=== PATIENT | female | born 1970 | race Caucasian/White ===

== ENCOUNTER 2024-05-06 05:40 | Observation (INO) ==
--- NOTE | 2024-04-13 10:06 | PAT Medication Instructions ---
Medication Instructions Date of Service April 13, 2024 Home Medications cholecalciferol (vitamin D3) 125 mcg (5,000 unit) tablet (Vitamin D3) 125 mcg PO QAM diltiazem HCl 90 mg tablet 90 mg PO QAM estradiol 0.01% (0.1 mg/gram) vaginal cream 1 appful vaginal DAILY fentanyl 12 mcg/hr transdermal patch 1 patch transdermal Q72H furosemide 20 mg tablet 20 mg PO DAILY PRN Edema hydrocortisone 10 mg tablet 10 mg PO BID levothyroxine 100 mcg tablet 100 mcg PO QAM nitrofurantoin 100 mg capsule 100 mg PO QPM oxycodone-acetaminophen 5 mg-325 mg tablet 1 tab PO TID PRN Pain pantoprazole 20 mg tablet,delayed release 20 mg PO DAILY potassium chloride 20 mEq tablet,extended release 20 meq PO DAILY PRN Edema prasterone (dhea) 25 mg tablet (DHEA) 25 mg PO QAM pregabalin 100 mg capsule (Lyrica) 100 mg PO TID propranolol 10 mg tablet 10 mg PO TID vitamin B12 500 mcg-folic acid 400 mcg tablet 1 tab PO QAM Continue as directed fentanyl 12 mcg/hr transdermal patch 1 patch transdermal Q72H (Avoid placement near surgery site prior to surgery) STOP taking 2 weeks before surgery (or as soon as possible if surgery is within 2 weeks) prasterone (dhea) 25 mg tablet (DHEA) 25 mg PO QAM STOP taking 24 hours before surgery estradiol 0.01% (0.1 mg/gram) vaginal cream 1 appful vaginal DAILY DO NOT take the morning of surgery cholecalciferol (vitamin D3) 125 mcg (5,000 unit) tablet (Vitamin D3) 125 mcg PO QAM furosemide 20 mg tablet 20 mg PO DAILY PRN Edema potassium chloride 20 mEq tablet,extended release 20 meq PO DAILY PRN Edema vitamin B12 500 mcg-folic acid 400 mcg tablet 1 tab PO QAM Take morning of surgery With a small sip of water, OTHERWISE NOTHING TO EAT OR DRINK AFTER MIDNIGHT: diltiazem HCl 90 mg tablet 90 mg PO QAM hydrocortisone 10 mg tablet 10 mg PO BID levothyroxine 100 mcg tablet 100 mcg PO QAM oxycodone-acetaminophen 5 mg-325 mg tablet 1 tab PO TID PRN Pain (if needed) pantoprazole 20 mg tablet,delayed release 20 mg PO DAILY pregabalin 100 mg capsule (Lyrica) 100 mg PO TID propranolol 10 mg tablet 10 mg PO TID Take evening before surgery furosemide 20 mg tablet 20 mg PO DAILY PRN Edema (if needed) hydrocortisone 10 mg tablet 10 mg PO BID nitrofurantoin 100 mg capsule 100 mg PO QPM oxycodone-acetaminophen 5 mg-325 mg tablet 1 tab PO TID PRN Pain (if needed) potassium chloride 20 mEq tablet,extended release 20 meq PO DAILY PRN Edema (if needed) pregabalin 100 mg capsule (Lyrica) 100 mg PO TID propranolol 10 mg tablet 10 mg PO TID Other Notes If you have any questions please call us at [phone] or [phone] or [phone] or [phone]
--- NOTE | 2024-04-21 11:25 | Anesthesiology Consultation ---
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 Will leave to surgeon's discretion if preop Covid testing needed Teaching & Discussion Pre-Anesthesia Teaching/Discussion Notes: Instructed NPO after midnight before surgery,except medications with 15 cc of water. Medication instructions provided according to the PAT guidelines. History Surgery Operation Date: 05/06/24 07:45 Proposed Procedures p C5-C6 Anterior Discectomy and Fusion, Spinal Cord Monitoring - Cali Blackburn, Height/Weight Height: 5 ft 3 in Weight: 71.7 kg Allergies Allergy/AdvReac Type Severity Reaction Status Date / Time adhesive tape Allergy Intermediate Blisters Verified 04/13/24 08:00 Medications Home Medications Medication Instructions Recorded Confirmed Last Taken cholecalciferol (vitamin D3) 125 125 mcg PO QAM 04/13/24 04/13/24 Unknown mcg (5,000 unit) tablet (Vitamin D3) diltiazem HCl 90 mg tablet 90 mg PO QAM 04/13/24 04/13/24 Unknown estradiol 0.01% (0.1 mg/gram) 1 appful vaginal DAILY 04/13/24 04/13/24 Unknown vaginal cream fentanyl 12 mcg/hr transdermal 1 patch transdermal Q72H 04/13/24 04/13/24 Unknown patch furosemide 20 mg tablet 20 mg PO DAILY PRN Edema 04/13/24 04/13/24 Unknown hydrocortisone 10 mg tablet 10 mg PO BID 04/13/24 04/13/24 Unknown levothyroxine 100 mcg tablet 100 mcg PO QAM 04/13/24 04/13/24 Unknown nitrofurantoin 100 mg capsule 100 mg PO QPM 04/13/24 04/13/24 Unknown oxycodone-acetaminophen 5 mg-325 1 tab PO TID PRN Pain 04/13/24 04/13/24 Unknown mg tablet pantoprazole 20 mg tablet,delayed 20 mg PO DAILY 04/13/24 04/13/24 Unknown release potassium chloride 20 mEq 20 meq PO DAILY PRN Edema 04/13/24 04/13/24 Unknown tablet,extended release prasterone (dhea) 25 mg tablet 25 mg PO QAM 04/13/24 04/13/24 Unknown (DHEA) pregabalin 100 mg capsule (Lyrica) 100 mg PO TID 04/13/24 04/13/24 Unknown propranolol 10 mg tablet 10 mg PO TID 04/13/24 04/13/24 Unknown vitamin B12 500 mcg-folic acid 400 1 tab PO QAM 04/13/24 04/13/24 Unknown mcg tablet Past Medical History Medical History (Updated 04/22/24 @ 08:59 by Yamini Florez PA-C) Achalasia and nutcracker esophagus Gets EGD dilation and botox injection q 3-4 months (just had EGD dilation with Botox injection 04/20/24- symptoms controlled currently) 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" - Usually given stress dose IV - Follows with [facility] Endocrinology - stable at last appt 06/2023 Cervical pain Limited ROM Dysphagia every 3-4 months esophageal dilation GERD (gastroesophageal reflux disease) well controlled and stable History of anemia History of blood transfusion 1984 "after delivering my first child" History of kidney stones passed on own Hx of thyroid cancer 2003 - Surgery - [facility] Endocrinology s/p thyroidectomy - no chemo or XRT Migraines Stage 3 chronic kidney disease - [facility] Josr Moreno/Urologist [facility] Restrepo - did have kidney infection and renal failure Jan 2023- treated- symptoms resolved - stable at this time per patient Exercise / Class Metabolic Activity III < 4 Walking/Shop/Light housework (one flight of stairs - no chest pain, mild SOB ) Past Surgical History Surgical History (Updated 04/21/24 @ 11:31 by Yamini Florez PA-C) History of esophageal dilatation Had procedure on 04/20/24 [facility] [place] Aware History of hand surgery Right - Middle Finger - Hardware present History of lumbar surgery Hardware present Hx of appendectomy Hx of section x2 Hx of cholecystectomy Hx of colonoscopy Hx of esophagogastroduodenoscopy Hx of hernia repair Hx of hysterectomy Hx of thyroidectomy Hx of tooth extraction Past Anesthesia History No Hx of Anesthesia Complications and No Family Hx of Anesthesia Complications History of PONV No Hx of Motion Sickness and History of PONV (usually pretreated with anti- nausea medication ) Social History Smoking Status: Former smoker Do You Dip or Chew Tobacco: No Smoking End Date: 2014 - smoked for approximately 20 years (1PPD) Hx Alcohol Use: Yes Alcohol type: wine alcohol intake frequency: holidays/special occasions only Hx Substance Use: Yes substance use type: other Substance Use Type Other:: Medical Marijuan - Advised Last Used Substance: Unknown Review of Systems Patient denies chest pain, shortness of breath at rest, cough, wheezing, palpitations. No hx of seizures, stroke, VA, apnea/snoring. No hx of blood clots Physical Exam Vital Signs VITALS BP 110/70 P 45 (chronically bradycardic- due to Melville's per patient; asymptomatic) TEMP 98.1 SP02 97% RESP 16 Constitutional no acute distress ENMT Mouth: no TMJ clicking Thyromental Distance: > or= 3.5 Finger Breadths (3.5) Mallampati Class: III Full upper dentures Missing bottom molars Neck + limited neck extension (significant ) Respiratory normal respiratory effort; no respiratory distress Auscultation: lungs clear to auscultation bilaterally; no wheezes Cardiovascular Rate/Rhythm: regular rate and regular rhythm Heart Sounds: no murmur Vessels: no carotid bruit Musculoskeletal Spine: no pain with cervical ROM Extremities: extremities normal to inspection Psychiatric Orientation: alert Lab Results Anesthesia Preop Results Results Anesthesia Widget: WBC 8.08 K/ul (4.8-10.8) 04/21/24 Hgb 14.3 g/dl (12.0-16.0) 04/21/24 Hct 43.2 % (37.0-47.0) 04/21/24 Plt 196 K/uL (130-400) 04/21/24 Na 137 mmol/L (136-145) 04/21/24 K 4.0 mmol/L (3.5-5.1) 04/21/24 Cl 104 mmol/L (98-107) 04/21/24 CO2 29 mmol/L (21-32) 04/21/24 BUN 23 mg/dl (6-23) 04/21/24 Creat 1.25 mg/dl (0.6-1.2) H 04/21/24 Glucose Level 97 mg/dl (70-99(Fasting)) 04/21/24 PT 11.3 Seconds (9.0-12.0) 04/21/24 PTT 26 Seconds (21-31) 04/21/24 INR 1.0 (0.9-1.1) 04/21/24 Urine Color Dark Yellow 04/21/24 Urine Appearance Cloudy (Clear) A 04/21/24 Urine pH 5.0 (4.5-7.5) 04/21/24 Urine Specific [place] 1.030 (1.000-1.030) 04/21/24 Urine Protein Trace (Negative) H 04/21/24 Urine Glucose (UA) Negative (Negative) 04/21/24 Urine Ketones Trace (Negative) H 04/21/24 Urine Blood Trace (Negative) H 04/21/24 Urine Nitrite Negative (Negative) 04/21/24 Urine Bilirubin Negative (Negative) 04/21/24 Urine Urobilinogen Negative (Negative) 04/21/24 Urine Leukocyte Esterase Negative (Negative) 04/21/24 Urine WBC (Auto) 0-5 /hpf (0-5) 04/21/24 Urine RBC (Auto) >20 /hpf (0-2) H 04/21/24 Urine Hyaline Casts (Auto) 3-5 /lpf (0-2) H 04/21/24 Urine Epithelial Cells (Auto) 11-20 /hpf (0-2) H 04/21/24 Urine Bacteria (Auto) 2+ (None Seen) H 04/21/24 Blood Type A Positive 04/21/24 Antibody Screen NEGATIVE 04/21/24 Testing Laboratory Results Surgeon's office informed of abnormal UA Electrocardiogram Date: 07/29/23 Findings: + SB @ (45bpm) Otherwise normal EKG per cardio When compared to EKG from July 31, 2021- no significant change was found per cardio Chest X-Ray Date: 04/21/24 Findings: + NAD FINDINGS: Lungs and pleural spaces: Mild hyperinflation. No consolidation or pulmonary edema. No pleural effusion or pneumothorax. Heart: Normal shape and configuration. Mediastinum: Normal contour. Bones/joints: Minimal thoracic spondylosis noted. Minimal there is minimal S-shaped thoracic scoliotic curvature and multilevel spondylosis. No acute osseous abnormality. Echocardiogram Date: 04/22/18 EF: 55-59% LV Function: normal RWMA: + none Other Findings: no LVH Mild to moderate AI Small (<5mm) circumferential pericardial effusion is noted There is no diastolic compression of the right ventricle to suggest cardiac tamponade Organized material seen within the pericardial effusion (Seen by [facility] cardio 07/07/18- "small pericardial effusion related to profound hypothyroidism"; 07/30/2018 [facility] cardiac CT scan showed no "evidence of significant pericardial effusion") Other Testing Cardiac CT 07/30/18= The coronary arteries are normal: absence of plaque and no luminal stenosis. The Agatston calcium score is 0. The pericardium is of normal thickness without evidence of significant pericardial effusion.
[2024-05-06] MEDS ORDERED: fentaNYL citrate PF 100 MCG/2 ML VIAL ONE (07:13)
[2024-05-06] MEDS ORDERED: MIDAZOLAM HCL 1 MG/ML 2ML VIAL ONE (07:13)
[2024-05-06] MEDS ORDERED: ROCURONIUM BROMIDE 10 MG/ML 5 ML VIAL IV ONE (07:14)
[2024-05-06] MEDS ORDERED: LIDOCAINE 2% 2 ML VIAL/AMP(20MG/ML) INFIL ONE (07:14)
[2024-05-06] MEDS ORDERED: PROPOFOL IV EMULSION 10 MG/ML 20 ML VIAL IV ONE ×2 (07:14→07:20)
[2024-05-06] MEDS ORDERED: ONDANSETRON INJ 2 MG/ML 2 ML VIAL ONE (07:14)
[2024-05-06] MEDS ORDERED: DEXAMETHASONE SOD INJ 4 MG/ML VIAL ONE (07:14)
[2024-05-06] MEDS ORDERED: GLYCOPYRROLATE 0.2 MG/ML VIAL ONE (07:27)
[2024-05-06] MEDS ORDERED: ePHEDrine sulfate 50 MG/ML AMP IV PRN (07:30)
[2024-05-06] MEDS ORDERED: PROMETHAZINE HCL 6.25 MG in SODIUM CHLORIDE 0.9% 50 ML IV PRN (07:30)
[2024-05-06] MEDS ORDERED: HYDROmorphone INJ 2 MG/ML SYR/VIAL IV PRN (07:30)
[2024-05-06] MEDS ORDERED: ONDANSETRON INJ 2 MG/ML 2 ML VIAL IV PRN ×2 (07:30→11:11)
[2024-05-06] MEDS ORDERED: ATROPINE SULFATE 0.1 MG/ML 10ML SYR IV PRN (07:30)
[2024-05-06] MEDS: LR 60ML/HR IV SCH (07:33)
--- NOTE | 2024-05-06 07:38 | History & Physical Bridge Note ---
Date of Service May 06, 2024 History & Physical Bridge Note I have examined the patient, reviewed the History & Physical and in the interval since the performance of the History & Physical I have noted the following changes of clinical significance: no changes noted
--- NOTE | 2024-05-06 07:39 | History & Physical Report ---
Date of Service May 06, 2024 Assessment & Plan (1) Herniation of cervical intervertebral disc with radiculopathy: Plan: C5-C6 anterior cervical discectomy and fusion History of Present Illness Chief Complaint: Neck and arm pain Primary Care Provider: Peri Tenorio MD This is a 54-year-old female who presents with chronic persistent neck and arm pain and failing course of nonoperative care is here for surgical invention. Allergies Allergy/AdvReac Type Severity Reaction Status Date / Time adhesive tape Allergy Intermediate Blisters Verified 05/06/24 07:12 Home Medications Medication Instructions Recorded Confirmed Type cholecalciferol (vitamin D3) 125 125 mcg PO QAM 04/13/24 05/06/24 History mcg (5,000 unit) tablet (Vitamin D3) diltiazem HCl 90 mg tablet 90 mg PO QAM 04/13/24 05/06/24 History estradiol 0.01% (0.1 mg/gram) 1 appful vaginal DAILY 04/13/24 05/06/24 History vaginal cream fentanyl 12 mcg/hr transdermal 1 patch transdermal Q72H 04/13/24 05/06/24 History patch furosemide 20 mg tablet 20 mg PO DAILY PRN Edema 04/13/24 05/06/24 History hydrocortisone 10 mg tablet 10 mg PO BID 04/13/24 05/06/24 History levothyroxine 100 mcg tablet 100 mcg PO QAM 04/13/24 05/06/24 History nitrofurantoin 100 mg capsule 100 mg PO QPM 04/13/24 05/06/24 History oxycodone-acetaminophen 5 mg-325 1 tab PO TID PRN Pain 04/13/24 05/06/24 History mg tablet pantoprazole 20 mg tablet,delayed 20 mg PO DAILY 04/13/24 05/06/24 History release potassium chloride 20 mEq 20 meq PO DAILY PRN Edema 04/13/24 05/06/24 History tablet,extended release prasterone (dhea) 25 mg tablet 25 mg PO QAM 04/13/24 05/06/24 History (DHEA) pregabalin 100 mg capsule (Lyrica) 100 mg PO TID 04/13/24 05/06/24 History propranolol 10 mg tablet 10 mg PO TID 04/13/24 05/06/24 History vitamin B12 500 mcg-folic acid 400 1 tab PO QAM 04/13/24 05/06/24 History mcg tablet Past Med/Surg History Problem List (Updated 05/06/24 @ 07:38 by Cali Blackburn DO) Herniation of cervical intervertebral disc with radiculopathy Encounter for pre-operative examination Medical History (Updated 05/06/24 @ 07:38 by Cali Blackburn DO) Achalasia and nutcracker esophagus Gets EGD dilation and botox injection q 3-4 months (just had EGD dilation with Botox injection 04/20/24- symptoms controlled currently) Cervical pain Limited ROM Stage 3 chronic kidney disease - Follows [facility] Josr Moreno/Urologist [facility] Restrepo - did have kidney infection and renal failure Jan 2023- treated- symptoms resolved - stable at this time per patient History of kidney stones passed on own GERD (gastroesophageal reflux disease) well controlled and stable Dysphagia every 3-4 months esophageal dilation History of blood transfusion 1984 "after delivering my first child" Hx of thyroid cancer 2003 - Surgery - [facility] Endocrinology s/p thyroidectomy - no chemo or XRT History of anemia Migraines Russell's disease - "Usually when I have anesthesia they give me a stress dose" - Usually given stress dose IV - Follows with [facility] Endocrinology - stable at last appt 06/2023 Surgical History Hx of tooth extraction History of esophageal dilatation Had procedure on 04/20/24 [facility] Aware Hx of hysterectomy Hx of section x2 History of hand surgery Right - Middle Finger - Hardware present History of lumbar surgery Hardware present Hx of hernia repair Hx of cholecystectomy Hx of appendectomy Hx of esophagogastroduodenoscopy Hx of colonoscopy Hx of thyroidectomy Social History Smoking Status: Former smoker Smoking End Date: 2014 - smoked for approximately 20 years (1PPD); Second Hand Exposure: No; Do You Dip or Chew Tobacco: No; Tobacco Cessation Education Requested by Patient: No Hx Alcohol Use: Yes Alcohol type: wine Hx Substance Use: Yes Last Used Substance: Unknown Substance Use Type Other:: Medical Marijuan - Advised Preferred Language: Guinean Communication Ability: Effective Pricing Intern Required: No Beliefs That Will Affect Care: None Current Living Situation: Alone Other Information That Helps Us Care for You: No Feels Safe at Home: Yes Safety Concerns: Feels Safe At This Time Assistive Devices: Cane, Denture - Upper, Glasses, Walker and Wheelchair Physical Exam Physical Exam: Patient is alert and oriented Heart regular rhythm Lungs clear Results & Data Results & Data Vital Signs (Past 12 Hours) Vital Signs Temp Pulse Resp BP Pulse Ox O2 Del Method 05/06/24 07:22 36.8 C 63 20 120/73 96 Room Air
[2024-05-06] MEDS: CeleBREX 200 MG CAP PO SCH (07:50)
[2024-05-06] MEDS: GABAPENTIN 600 MG DOSE PO SCH (07:50)
[2024-05-06] MEDS: LR 15ML/HR IV SCH (07:50)
[2024-05-06] MEDS: ceFAZolin 2000MG 2,000 MG/15 ML SYR IV SCH ×2 (07:56→15:48)
[2024-05-06] MEDS: ACETAMINOPHEN 500 MG TAB PO SCH (07:57)
[2024-05-06] MEDS: ceFAZolin 330 MG/ML 1 GM VIAL ONE (08:34)
[2024-05-06] MEDS ORDERED: ePHEDrine sulfate 50 MG/5 ML SYR ONE (08:44)
[2024-05-06] MEDS: FLOSEAL HEMOSTATIC MATRIX 10ML TOP ONE (08:58)
--- NOTE | 2024-05-06 09:03 | Operative Report ---
Post Operative Report Pre & Post Diagnosis Operation Date: 05/06/24 07:45 Pre-Op Diagnosis: Herniation of cervical intervertebral disc with radiculopathy Post-Op Diagnosis: Herniation of cervical intervertebral disc with radiculopathy I identified the patient and participated in the time-out.: Yes Procedure Operation Date: 05/06/24 07:45 Actual Procedures #1 anterior cervical discectomy with bilateral foraminotomies see 5 C6. #2 anterior cervical arthrodesis C5-C6. #3 placement of Spira 7 mm cage filled with os design bone graft C5-C6. #4 application of Z plate and screws across C5-C6. Surgeon Cali Blackburn, DO Lens Mold Setter None Estimated Blood Loss 10 Findings Consistent with Post-Op Diagnosis Specimens None Indications This is a 64-year-old female well-known to me the presents above-mentioned diagnosis after failing course of nonoperative care is here for surgical invention. Description of Procedure Patient was met with identified informed consent obtained. Patient was then taken to the operative suite underwent patient placed in a supine position the Donny table the head Arriola head ordered. All bony prominences well-padded eyes inspected to ensure no external precipice upon them. This point the anterior cervical spine was prepped and draped no sterile fashion. With the assistance of fluoroscopy identified the C5-C6 disc base and a transverse incision was placed along the right anterior aspect of the cervical spine overlying his region. Blunt dissection with the assistance of bipolar electrocautery performed down to and exposing the anterior cervical spine at C5- C6. Self-retaining retractors placed. Then performed a complete discectomy to the uncovertebral joints bilaterally. Blachly distracting pins utilized to assist in visualization. Removed all posterior fibers longitudinal ligament bilateral foraminotomies performed. Endplates burred to subcortical bleeding bone and a 7 mm Spira cage filled with os design bone graft tapped position. Distracting apparatus was removed. A Z plate and screws applied with the assistance of fluoroscopy. The incision was then copiously irrigated explored to ensure no damage to surrounding structures remaining bleeding. 10 round BEVERLY drain inserted. The incision was then closed with 2 Vicryl in the fascia and a 4 Monocryl for final skin closure. Steri-Strips sterile dressing placed. Patient waken taken to PACU in stable condition. Im ordering 10 grams of Triple [place] Collagen Powder ([id number] [id number]) to treat an incision wound that was caused by a spine procedure. The incision is approximately 2 cm(W) x 4 cm(L) into the joint (D) in size and is a full thickness wound. Triple Tioga collagen comes in 1 gram packets so 10 packets were ordered. Given the size of the wound, with light to moderate exudate I chose to order a 10 day supply. The patient will be provided instructions for proper application of the collagen wound kit. The patient will be asked to apply the collagen powder daily and then cover it with sterile dressings dispensed. Collagen was selected as I expect the collagen to attract monocytes and fibroblasts, act as a sacrificial substrate for MMPs, and ultimately proved a matrix for tissue and vessel growth. The collagen will act as a primary dressing in this scenario. It is medically necessary for proper healing of these wounds to improve bioavailability and contact with each wound surface, this is also to help prevent infection of wounds and promote healing ultimately leading to a better healing outcome and limit the risk of infection. I attest to the content of the Intraoperative Record and any orders documented therein. Any exceptions are noted below.
--- NOTE | 2024-05-06 09:23 | Fluoroscopy Report ---
FL cervical 2-3V CLINICAL HISTORY: ACDF C5-C6 COMPARISON STUDY: None FLUOROSCOPY TIME: 9.6 seconds FLUOROSCOPY IMAGES: 3 EXPOSURE DOSE: 0.74 mGy FINDINGS: Anterior plate and screw fusion with discectomy noted at what is labeled the C5-C6 level. A n anterior surgical bed sponge is present along with an endotracheal tube. Surgical clips project ove r the posterior tissues. Note that the images were submitted following completion of the surgery. IMPRESSION: Fluoroscopic assistance as above. ACT 112: Negative or not required by law. Electronically signed by: Darrell Isidro M.D. 05/06/2024 9:22 AM
[2024-05-06] MEDS: fentaNYL citrate PF 100 MCG/2 ML VIAL IV PRN (09:26)
--- NOTE | 2024-05-06 10:46 | Anesthesiology Progress Note ---
Date of Service May 06, 2024 Anesthesia Post Procedure Vital Signs Vital Signs: Temp Pulse Pulse Resp BP Pulse Ox O2 Del Method 05/06/24 10:26 57 L 10 L 114/64 98 Nasal Cannula 05/06/24 10:15 36.4 C L 59 L 12 115/71 98 Nasal Cannula 05/06/24 10:05 60 8 L 117/70 97 Nasal Cannula 05/06/24 09:55 58 L 11 L 106/74 99 Nasal Cannula 05/06/24 09:45 59 L 13 114/67 98 Nasal Cannula 05/06/24 09:35 58 L 6 L 116/68 96 Nasal Cannula 05/06/24 09:25 66 10 L 122/74 94 Room Air 05/06/24 09:15 36.1 C L 74 27 H 107/87 97 Oxymask 05/06/24 07:22 36.8 C 63 20 120/73 96 Room Air O2 Flow Rate 05/06/24 10:26 2 05/06/24 10:15 2 05/06/24 10:05 2 05/06/24 09:55 2 05/06/24 09:45 2 05/06/24 09:35 2 05/06/24 09:25 05/06/24 09:15 6 05/06/24 07:22 Pain Intensity Neck: Pain Intensity: 3 Transfer of Care Handoff Completed per policy Notes Mental Status: alert / awake / arousable and participated in evaluation Patient Amnestic to Procedure: Yes Nausea / Vomiting: adequately controlled Pain: adequately controlled Airway Patency, RR, SpO2: stable & adequate BP & HR: stable & adequate Hydration State: stable & adequate Anesthetic Complications: no major complications apparent
[2024-05-06] MEDS ORDERED: MAGNESIUM HYDROXIDE SUSP 30 ML UDC PO PRN (11:11)
[2024-05-06] MEDS ORDERED: ONDANSETRON 4 MG OD TAB PO PRN (11:11)
[2024-05-06] MEDS ORDERED: POTASSIUM CHLORIDE CRTAB 20 MEQ TABCR PO PRN (11:11)
[2024-05-06] MEDS ORDERED: ACETAMINOPHEN 1,000 MG/100 ML VIAL IV PRN (11:11)
[2024-05-06] MEDS ORDERED: ALUMINUM/MAGNESIUM SUSP 30 ML UDC PO PRN (11:11)
[2024-05-06] MEDS ORDERED: bisacodyL 10 MG SUPP PR PRN (11:11)
[2024-05-06] MEDS ORDERED: hydrOXYzine HCl 25 MG TAB PO PRN (11:11)
[2024-05-06] MEDS ORDERED: HYDROmorphone INJ 0.5 MG/0.5 ML SYR IV PRN (11:11)
[2024-05-06] MEDS ORDERED: FUROSEMIDE 20 MG TAB PO PRN (11:11)
[2024-05-06] MEDS ORDERED: DO NOT ADMINISTER PNEUMOCOCCAL VACCINE PRN (11:11)
[2024-05-06] MEDS ORDERED: LORazepam 0.5 MG TAB PO PRN (11:11)
[2024-05-06] MEDS ORDERED: dexAMETHasone 8 MG in SYRINGE 0 ML IV PRN (11:11)
[2024-05-06] MEDS ORDERED: SOD PHOSPHATE/SOD BIPHOSPHATE ENEMA 132 ML BTL PR PRN (11:11)
[2024-05-06] MEDS ORDERED: diphenhydrAMINE Capsule 25 MG CAP PO PRN (11:11)
[2024-05-06] MEDS ORDERED: NALOXONE HCL 0.4 MG/1 ML VIAL/CARP IV PRN (11:11)
[2024-05-06] MEDS ORDERED: HYDROmorphone INJ 1 MG/ML SYRINGE IV PRN (11:11)
[2024-05-06] MEDS ORDERED: DO NOT ADMINISTER FLU VACCINE PRN (11:11)
[2024-05-06] MEDS ORDERED: FAMOTIDINE 20 MG TAB PO PRN (11:11)
[2024-05-06] MEDS ORDERED: PROMETHAZINE 12.5 MG/50.5 ML BAG IV PRN (11:11)
[2024-05-06] MEDS ORDERED: LORazepam 2 MG/1 ML VIAL IV PRN (11:11)
[2024-05-06] MEDS ORDERED: RACEPINEPHRINE 2.25% NEBU SOLN 0.5 ML VIAL INH PRN (11:11)
[2024-05-06] MEDS ORDERED: METOCLOPRAMIDE HCL INJ 5 MG/ML 2 ML VIAL IV PRN (11:11)
--- NOTE | 2024-05-06 11:17 | Consultation ---
Date of Consultation May 06, 2024 Assessment & Plan (1) Herniation of cervical intervertebral disc with radiculopathy: (2) [place]'s disease: (3) Stage 3 chronic kidney disease: Plan This is a 54-year-old female who has significant past medical history of hypothyroidism, history of thyroid cancer, adrenal insufficiency, CKD-3, achalasia, dysphagia, IBS, mild aortic regurgitation who presents for elective surgical procedure by Dr. Blackburn. #S/P C5-C6 ACDF POD #[address] Blackburn tolerated procedure well EBL 10 ml pain/wound management per orthopedics #Addisons disease pt follows endocrinology who recommended stress dose steroids, already ordered by Dr. Blackburn will resume home regimen of hydrocortisone tomorrow 15mg in a.m. and 10mg in p.m. #Hypothyroidism hx of thyroid surgery s/p resection #CKD-3: chronic, stable, baseline cr 1.3-1.4, avoid nephrotoxic meds #Chronic Pain 2/2 back pain follows Pain management on fentanyl patch and oxy therapy instructions from pain management recommend increased oxy dose in the lloyd operative phase DVT ppx: SCDS FULL CODE PCP: Dr. Tenorio Dispo: per primary Thank you for this consultation. We will follow the patient with you during their hospital stay. You can reach a member of the [facility] Hospitalist Team 02/12 via hospitalist role on tiger text. I spent a total of 50 minutes reviewing notes, outpatient records, labs, medication, coordinating, documenting and providing care for this patient excluding time spent in the performance of separately billed services. Pt was seen and examined in collaboration with Dr. Clemons, please see addendum Supervising Physician Co-Signing Physician Notes Attending Addendum: Case reviewed with the advanced practitioner. I have personally performed a history and physical examination on the patient. I have reviewed the advanced practitioner's documentation on the date of service referenced in note, and I agree with, and take responsibility for the plan of care. please refer to her notes for full details patient seen and examined, records reviewed by myself as well Jose Clemons MD History of Present Illness Requesting Physician: Dr. Blackburn Reason for Consultation: postop medical management Attending Physician: Cali Blackburn, DO History of Present Illness This is a 54-year-old female who has significant past medical history of hy pothyroidism, history of thyroid cancer, adrenal insufficiency, achalasia, dysphagia, IBS, mild aortic regurgitation who presents for elective surgical procedure by Dr. Blackburn. Patient underwent a C5-C6 ACDF. She tolerated the procedure well. Pts mother and son are in the room. She has some mild incisional discomfort. She denies f/c/s, chest pain, sob, n/v/d, abd pain. She has hx of addisons disease. She was instructed to have stress dose steroids intraoperatively and 24hr post operatively. She also follows pain management for chronic low back pain. She is managed on a fentanyl patch and chronic oxy therapy. She was instructed to increase her oxycodone to 10mg ever is ay 6. She offers no acute concerns. Allergies Allergy/AdvReac Type Severity Reaction Status Date / Time adhesive tape Allergy Intermediate Blisters Verified 05/06/24 07:12 Home Medications Medication Instructions Recorded Confirmed Type cholecalciferol (vitamin D3) 125 125 mcg PO QAM 04/13/24 05/06/24 History mcg (5,000 unit) tablet (Vitamin D3) diltiazem HCl 90 mg tablet 90 mg PO QAM 04/13/24 05/06/24 History estradiol 0.01% (0.1 mg/gram) 1 appful vaginal DAILY 04/13/24 05/06/24 History vaginal cream fentanyl 12 mcg/hr transdermal 1 patch transdermal Q72H 04/13/24 05/06/24 History patch furosemide 20 mg tablet 20 mg PO DAILY PRN Edema 04/13/24 05/06/24 History hydrocortisone 10 mg tablet 10 mg PO BID 04/13/24 05/06/24 History levothyroxine 100 mcg tablet 100 mcg PO QAM 04/13/24 05/06/24 History nitrofurantoin 100 mg capsule 100 mg PO QPM 04/13/24 05/06/24 History oxycodone-acetaminophen 5 mg-325 1 tab PO TID PRN Pain 04/13/24 05/06/24 History mg tablet pantoprazole 20 mg tablet,delayed 20 mg PO DAILY 04/13/24 05/06/24 History release potassium chloride 20 mEq 20 meq PO DAILY PRN Edema 04/13/24 05/06/24 History tablet,extended release prasterone (dhea) 25 mg tablet 25 mg PO QAM 04/13/24 05/06/24 History (DHEA) pregabalin 100 mg capsule (Lyrica) 100 mg PO TID 04/13/24 05/06/24 History propranolol 10 mg tablet 10 mg PO TID 04/13/24 05/06/24 History vitamin B12 500 mcg-folic acid 400 1 tab PO QAM 04/13/24 05/06/24 History mcg tablet oxycodone-acetaminophen 10 mg-325 1 tab PO Q6 PRN pain #24 tabs 05/06/24 Rx mg tablet (Percocet) prochlorperazine maleate 10 mg 10 mg PO Q6H PRN Nausea 05/06/24 05/06/24 History tablet Patient History Medical History Achalasia and nutcracker esophagus Gets EGD dilation and botox injection q 3-4 months (just had EGD dilation with Botox injection 04/20/24- symptoms controlled currently) Cervical pain Limited ROM Stage 3 chronic kidney disease - Follows [facility] Josr Moreno/Urologist ONI Restrepo - did have kidney infection and renal failure Jan 2023- treated- symptoms resolved - stable at this time per patient History of kidney stones passed on own GERD (gastroesophageal reflux disease) well controlled and stable Dysphagia every 3-4 months esophageal dilation History of blood transfusion 1984 "after delivering my first child" Hx of thyroid cancer 2003 - Surgery - [facility] Endocrinology s/p thyroidectomy - no chemo or XRT History of anemia Migraines Russell's disease - "Usually when I have anesthesia they give me a stress dose" - Usually given stress dose IV - Follows with [facility] Endocrinology - stable at last appt 06/2023 Surgical History Hx of tooth extraction History of esophageal dilatation Had procedure on 04/20/24 [facility] Aware Hx of hysterectomy Hx of section x2 History of hand surgery Right - Middle Finger - Hardware present History of lumbar surgery Hardware present Hx of hernia repair Hx of cholecystectomy Hx of appendectomy Hx of esophagogastroduodenoscopy Hx of colonoscopy Hx of thyroidectomy Social History Smoking Status: Former smoker Smoking End Date: 2014 - smoked for approximately 20 years (1PPD); Second Hand Exposure: No; Do You Dip or Chew Tobacco: No; Tobacco Cessation Education Requested by Patient: No Hx Alcohol Use: Yes Alcohol type: wine Hx Substance Use: Yes Last Used Substance: Unknown Substance Use Type Other:: Medical Marijuan - Advised Preferred Language: Israeli Communication Ability: Effective [employer]rar Required: No Beliefs That Will Affect Care: None Current Living Situation: Alone Other Information That Helps Us Care for You: No Feels Safe at Home: Yes Safety Concerns: Feels Safe At This Time Assistive Devices: Cane, Denture - Upper, Glasses, Walker and Wheelchair Review of Systems Review of Systems: All systems reviewed & are unremarkable except as noted in HPI & below Physical Exam Physical Exam: Constitutional: WD/WN, vitals as above, NAD, sitting up in bed, pleasant, conversing easily Head: Normocephalic, Atraumatic Eyes: PERRL, conjunctivae normal, anicteric sclerae ENMT: external ear and nose normal, oropharynx normal Neck: +dressing CDI BEVERLY drain with minimal serosang drainage Respiratory: normal respiratory effort, lungs clear to auscultation, no wheeze, rales, rhonchi. Normal insp/exp effort, no accessory muscle use Cardiovascular: RRR, no murmur, no edema Vessels: no JVD or carotid bruit Chest: normal inspection of chest Abdomen: normal bowel sounds, soft, nontender, no hepatosplenomegaly Musculoskeletal: no cyanosis or clubbing, extremities motor strength 5/5 Skin: no rashes, warm and dry normal turgor Neurologic: PERRL, EOMI, accommodation nl, no face palsy, no dysarthria CN's II-XI intact bilaterally and moves all extremities Psychiatric: A+Ox3, euthymic affect Results & Data Vital Signs (Past 12 Hours) Vital Signs Temp Pulse Pulse Resp BP Pulse Ox O2 Del Method 05/06/24 10:26 57 L 10 L 114/64 98 Nasal Cannula 05/06/24 10:15 36.4 C L 59 L 12 115/71 98 Nasal Cannula 05/06/24 10:05 60 8 L 117/70 97 Nasal Cannula 05/06/24 09:55 58 L 11 L 106/74 99 Nasal Cannula 05/06/24 09:45 59 L 13 114/67 98 Nasal Cannula 05/06/24 09:35 58 L 6 L 116/68 96 Nasal Cannula 05/06/24 09:25 66 10 L 122/74 94 Room Air 05/06/24 09:15 36.1 C L 74 27 H 107/87 97 Oxymask 05/06/24 07:22 36.8 C 63 20 120/73 96 Room Air O2 Flow Rate 05/06/24 10:26 2 05/06/24 10:15 2 05/06/24 10:05 2 05/06/24 09:55 2 05/06/24 09:45 2 05/06/24 09:35 2 05/06/24 09:25 05/06/24 09:15 6 05/06/24 07:22 Laboratory Results preoperative lab work done 04/21/2024 revealed a unremarkable CBC and CMP. She did have an elevation in creatinine at 1.25. Her urine revealed protein, ketones and bacteria. Urine culture grew greater than 100,000 lactobacillus. Diagnostic Findings Cervical Spine X-Ray 05/06/24 07:45 FL cervical 2-3V CLINICAL HISTORY: ACDF C5-C6 COMPARISON STUDY: None FLUOROSCOPY TIME: 9.6 seconds FLUOROSCOPY IMAGES: 3 EXPOSURE DOSE: 0.74 mGy FINDINGS: Anterior plate and screw fusion with discectomy noted at what is labeled the C5-C6 level. An anterior surgical bed sponge is present along with an endotracheal tube. Surgical clips project over the posterior tissues. Note that the images were submitted following completion of the surgery. IMPRESSION: Fluoroscopic assistance as above. ACT 112: Negative or not required by law. Electronically signed by: Darrell Isidro M.D. 05/06/2024 9:22 AM Medications Administered Current Inpatient Medications Acetaminophen (Acetaminophen 500 Mg Tab) 1,000 mg PO PREOP IHSAN Stop: 05/06/24 18:00 Last Admin: 05/06/24 07:57 Dose: 1,000 mg Atropine Sulfate (Atropine Sulfate 0.1 Mg/Ml 10ml Syr) 0.5 mg IV Q1M PRN PRN Reason: PACU Use-HR<40 &/or Bradycardi Stop: 05/06/24 15:30 Celecoxib (Celebrex 200 Mg Cap) 200 mg PO PREOP IHSAN Stop: 05/06/24 18:00 Last Admin: 05/06/24 07:50 Dose: 200 mg Ephedrine Sulfate (Ephedrine Sulfate 50 Mg/Ml Amp) 5 mg IV Q5M PRN PRN Reason: PACU Use Only-SBP<90 mmHg Stop: 05/06/24 15:30 Gabapentin (Gabapentin 600 Mg Dose) 600 mg PO PREOP IHSAN Stop: 05/06/24 18:00 Last Admin: 05/06/24 07:50 Dose: 600 mg Hydromorphone HCl (Hydromorphone Inj 2 Mg/Ml Syr/Vial) 0.5 mg IV Q5M PRN PRN Reason: PACU Use Only-Pain Stop: 05/06/24 15:30 Lactated Ringer's (Lr) 1,000 mls @ 15 mls/hr IV .Q24H IHSAN Stop: 05/07/24 05:59 Last Infusion: 05/06/24 07:58 Dose: 15 mls/hr Lactated Ringer's (Lr) 1,000 mls @ 60 mls/hr IV .[id number] IHSAN Stop: 05/06/24 22:39 Last Admin: 05/06/24 07:33 Dose: Not Given Cefazolin Sodium (Ancef 2000mg) 2,000 mg in 15 mls @ 3.75 mls/min IV PREOP IHSAN; Protocol Stop: 05/06/24 18:00 Last Admin: 05/06/24 07:56 Dose: 3.75 mls/min Promethazine HCl 6.25 mg/ (Sodium Chloride) 50.25 mls @ 204 mls/hr IV ONCE PRN PRN Reason: PACU Use Only-Nausea/Vomiting Stop: 05/06/24 15:30 Ondansetron HCl (Ondansetron Inj 2 Mg/Ml 2 Ml Vial) 4 mg IV ONCE PRN PRN Reason: PACU Use Only-Nausea/Vomiting Stop: 05/06/24 15:30 ECG Additional Comments: I have independently reviewed and interpreted patient's pre op EKG which revealed: Sinus bradycardia with ventricular rate of 45 bpm, QTc 397 MS, no ST or T wave changes
[2024-05-06] MEDS ORDERED: Nursing to Pharmacy Communication SCH (12:30)
[2024-05-06] MEDS: oxyCODONE/ACETAMINOPHEN 10-325 TAB PO PRN (12:34)
[2024-05-06] MEDS: dexAMETHasone 6 MG in SYRINGE 0 ML IV SCH (12:35)
[2024-05-06] MEDS: fentaNYL 12 MCG/HR TDSY TD SCH (12:57)
[2024-05-06] MEDS: PROPRANOLOL HCL 10 MG TAB PO SCH (13:44)
[2024-05-06] MEDS: PREGABALIN 100 MG CAP PO SCH (13:46)
[2024-05-06] MEDS: COUGH DROP (SUGAR FREE) LOZ 24 LOZ/1 BOX BUCCAL ONE (14:44)
[2024-05-06] MEDS: CHECK fentaNYL PATCH PLACEMENT SCH (15:48)
[2024-05-06] MEDS: NITROFURANTOIN MONOHYDRATE 100 MG CAP PO SCH (15:58)
[2024-05-06] MEDS: DOCUSATE SODIUM/SENNA 50/8.6MG TAB PO SCH (21:21)
[2024-05-06] MEDS: HYDROCORTISONE 10 MG TAB PO SCH (21:22)
[2024-05-07] MEDS: LEVOTHYROXINE SODIUM 100 MCG TABLET PO SCH (05:22)
[2024-05-07] MEDS: POLYETHYLENE (MIRALAX) 17 GM PACK PO SCH (05:22)
[2024-05-07] MEDS ORDERED: LEVOTHYROXINE SODIUM 50 MCG TABLET PO SCH (06:30)
[2024-05-07] MEDS: ACETAMINOPHEN 500 MG TAB PO PRN (08:04)
[2024-05-07] MEDS: CHOLECALCIFEROL 125 MCG (5,000 UNITS) TAB PO SCH (08:05)
[2024-05-07] MEDS: dilTIAZem HCL 30 MG TAB PO SCH (08:06)
[2024-05-07] MEDS: HYDROCORTISONE 10 MG TAB PO SCH (08:06)
[2024-05-07] MEDS: PANTOprazole 40 MG TAB PO SCH (08:06)
--- NOTE | 2024-05-07 08:10 | Hospitalist Progress Note ---
Date of Service May 07, 2024 Assessment & Plan (1) Herniation of cervical intervertebral disc with radiculopathy: (2) [place]'s disease: (3) Stage 3 chronic kidney disease: Plan This is a 54-year-old female who has significant past medical history of hypothyroidism, history of thyroid cancer, adrenal insufficiency, CKD-3, achalasia, dysphagia, IBS, mild aortic regurgitation who presents for elective surgical procedure by Dr. Blackburn. #S/P C5-C6 ACDF POD #[address] Blackburn tolerated procedure well EBL 10 ml pain/wound management per orthopedics #Addisons disease pt follows endocrinology who recommended stress dose steroids, already ordered by Dr. Blackburn resumed hydrocortisone 15mg in a.m. and 10mg in p.m. information on adrenal crisis symptoms given at bedside #Hypothyroidism hx of thyroid surgery s/p resection continue synthroid #CKD-3: chronic, stable, baseline cr 1.3-1.4, avoid nephrotoxic meds #Chronic Pain 2/2 back pain follows Pain management on fentanyl patch and oxy therapy instructions from pain management recommend increased oxy dose in the lloyd operative phase DVT ppx: SCDS FULL CODE PCP: Dr. Tenorio Dispo: per primary Thank you for this consultation. We will follow the patient with you during their hospital stay. You can reach a member of the [facility] Hospitalist Team 02/12 via hospitalist role on tiger text. Admission and Anticipated Discharge Date Admission Date: May 06, 2024 Subjective NAEO ready for discharge, reports feeling able to care for self at home Denies any chest pain, SOB, abdominal pain or uncontrolled surgical discomfort Physical Exam Constitutional: WD/WN, vitals as above Neck: maimi j in place Respiratory: normal respiratory effort, lungs clear to auscultation Cardiovascular: RRR, no murmur, no edema Musculoskeletal: no cyanosis or clubbing, extremities motor strength 5/5 Results & Data Results & Data Vital Signs (Past 12 Hours) Vital Signs Temp Pulse Resp BP Pulse Ox O2 Del Method O2 Flow Rate 05/07/24 07:41 36.9 C 79 16 146/85 H 96 Room Air 05/07/24 07:07 61 14 100 Nasal Cannula 1 05/07/24 05:26 36.6 C 62 18 126/82 99 Nasal Cannula 2 12/27/24 03:15 63 18 96 Nasal Cannula 2 05/07/24 03:15 36.5 C 64 18 146/80 H 100 Nasal Cannula 2 05/07/24 01:24 36.4 C L 66 18 128/83 99 Nasal Cannula 2 05/06/24 23:25 36.4 C L 63 18 131/84 98 Nasal Cannula 2 05/06/24 23:00 79 18 96 Nasal Cannula 2 05/06/24 21:18 36.4 C L 65 18 127/74 97 Nasal Cannula 2 Laboratory Results Short CBC 05/07/24 Range/Units 08:47 WBC 13.76 H (4.8-10.8) K/ul Hgb 14.6 (12.0-16.0) g/dl Hct 43.6 (37.0-47.0) % Plt Count 160 (130-400) K/uL BMP 05/07/24 08:47 Sodium 138 Potassium 4.0 Chloride 104 Carbon Dioxide 27 BUN 17 Creatinine 1.17 Glucose 196 H Calcium 9.1 Medications Administered Home Medications Medication Instructions Recorded Confirmed Last Taken cholecalciferol (vitamin D3) 125 125 mcg PO QAM 04/13/24 05/06/24 05/05/24 mcg (5,000 unit) tablet (Vitamin D3) diltiazem HCl 90 mg tablet 90 mg PO QAM 04/13/24 05/06/24 05/06/24 05:00 estradiol 0.01% (0.1 mg/gram) 1 appful vaginal DAILY 04/13/24 05/06/24 04/06/24 vaginal cream fentanyl 12 mcg/hr transdermal 1 patch transdermal Q72H 04/13/24 05/06/24 05/05/24 17:00 patch furosemide 20 mg tablet 20 mg PO DAILY PRN Edema 04/13/24 05/06/24 02/18/24 hydrocortisone 10 mg tablet 10 mg PO BID 04/13/24 05/06/24 05/06/24 05:00 levothyroxine 100 mcg tablet 100 mcg PO QAM 04/13/24 05/06/24 05/06/24 02:45 nitrofurantoin 100 mg capsule 100 mg PO QPM 04/13/24 05/06/24 05/05/24 17:00 oxycodone-acetaminophen 5 mg-325 1 tab PO TID PRN Pain 04/13/24 05/06/2405/05/24 20:00 mg tablet pantoprazole 20 mg tablet,delayed 20 mg PO DAILY 04/13/24 05/06/24 05/06/24 05:00 release potassium chloride 20 mEq 20 meq PO DAILY PRN Edema 04/13/24 05/06/24 02/18/24 tablet,extended release prasterone (dhea) 25 mg tablet 25 mg PO QAM 04/13/24 05/06/24 04/22/24 (DHEA) pregabalin 100 mg capsule (Lyrica) 100 mg PO TID 04/13/24 05/06/24 05/06/24 05:00 propranolol 10 mg tablet 10 mg PO TID 04/13/24 05/06/24 05/06/24 05:00 vitamin B12 500 mcg-folic acid 400 1 tab PO QAM 04/13/24 05/06/24 05/05/24 mcg tablet oxycodone-acetaminophen 10 mg-325 1 tab PO Q6 PRN pain #24 tabs 05/06/24 Unknown mg tablet (Percocet) prochlorperazine maleate 10 mg 10 mg PO Q6H PRN Nausea 05/06/24 05/06/24 Unknown tablet Active Medications Generic Name Dose Route Start Last Admin Trade Name Freq PRN Reason Stop Dose Admin Acetaminophen 1,000 mg 05/06/24 11:11 05/07/24 08:04 Acetaminophen 500 Mg Tab PO 06/05/24 11:10 1,000 mg Q8H PRN Administration MILD Pain Scale 1,2,3 & Pre PT Cyanocobalamin 500 mcg 05/07/24 11:30 05/07/24 11:22 Cyanocobalamin (B-12) 500 Mcg Tablet PO 06/06/24 11:29 500 mcg QDL IHSAN Administration Diltiazem HCl 90 mg 05/07/24 09:00 05/07/24 08:06 Diltiazem Hcl 30 Mg Tab PO 06/06/24 08:59 90 mg QAM IHSAN Administration Folic Acid 400 mcg 05/07/24 11:30 05/07/24 11:22 Folic Acid 400 Mcg Tab PO 06/06/24 11:29 400 mcg QDL IHSAN Administration Hydrocortisone 15 mg 05/07/24 09:00 05/07/24 08:06 Hydrocortisone 10 Mg Tab PO 06/06/24 08:59 15 mg QAM IHSAN Administration Hydrocortisone 10 mg 05/06/24 21:00 05/06/24 21:22 Hydrocortisone 10 Mg Tab PO 06/05/24 20:59 10 mg HS IHSAN Administration Levothyroxine Sodium 100 mcg 05/07/24 06:30 05/07/24 05:22 Levothyroxine Sodium 100 Mcg Tablet PO 06/06/24 06:29 100 mcg [id number] IHSAN Administration Miscellaneous 1 each 05/06/24 16:00 05/07/24 08:05 Check Fentanyl Patch Placement N/A 06/05/24 15:59 1 each QS IHSAN Administration Nitrofurantoin Macrocrystals 100 mg 05/06/24 16:30 05/06/24 15:58 Nitrofurantoin Monohydrate 100 Mg Cap PO 06/05/24 16:29 100 mg QDD IHSAN Administration Oxycodone/Acetaminophen 1 - 2 tab 05/06/24 11:11 05/07/24 11:21 Oxycodone/Acetaminophen 10-325 Tab PO 05/20/24 11:10 1 tab Q4H PRN Administration Pain & Pre PT Pantoprazole Sodium 40 mg 05/07/24 09:00 05/07/24 08:06 Pantoprazole 40 Mg Tab PO 06/06/24 08:59 40 mg DAILY IHSAN Administration Polyethylene Glycol 17 gm 05/07/24 06:00 05/07/24 05:22 Polyethylene (Miralax) 17 Gm Pack PO 06/06/24 05:59 Not Given Q6 IHSAN Pregabalin 100 mg 05/06/24 14:00 05/07/24 08:09 Pregabalin 100 Mg Cap PO 06/05/24 13:59 100 mg TID IHSAN Administration Propranolol HCl 10 mg 05/06/24 14:00 05/07/24 08:06 Propranolol Hcl 10 Mg Tab PO 06/05/24 13:59 10 mg TID IHSAN Administration Senna/Docusate Sodium 2 tab 05/06/24 21:00 05/06/24 21:21 Docusate Sodium/Senna 50/8.6mg Tab PO 06/05/24 20:59 2 tab HS IHSAN Administration Vitamin D 125 mcg 05/07/24 09:00 05/07/24 08:05 Cholecalciferol 125 Mcg (5,000 Units) Tab PO 06/06/24 08:59 125 mcg QAM IHSAN Administration
[2024-05-07] MEDS ORDERED: PRASTERONE 25 MG PO SCH (09:00)
[2024-05-07 09:22] LABS: Hematocrit (blood only) 43.6 % (37.0-47.0); Hemoglobin 14.6 g/dl (12.0-16.0); Mean Corpuscular Hemoglobin 31.3 pg (25.0-34.0); Mean Corpuscular Hgb Conc 33.5 g/dL (32.0-36.0); Mean Corpuscular Volume 93.6 fL (80.0-100.0); Mean Platelet Volume 11.7 fL (9.4-12.4); Platelet Count 160 K/uL (130-400); RDW Coefficient of Variation 11.9 % (11.5-14.5); RDW Standard Deviation 41.2 fL (36.4-46.3); Red Blood Count 4.66 M/uL (4.20-5.40); White Blood Count 13.76 K/ul (4.8-10.8)
[2024-05-07 09:27] LABS: BUN Creatinine Ratio 14.5 (10-20); Calcium 9.1 mg/dl (8.6-10.3)
[2024-05-07 10:21] VITALS: BP 128/75; TEMP 98.1
[2024-05-07 11:04] VITALS: PULSE 69; RESP 15; O2SAT 96
[2024-05-07] MEDS: FOLIC ACID 400 MCG TAB PO SCH (11:22)
[2024-05-07] MEDS: CYANOCOBALAMIN (B-12) 500 MCG TABLET PO SCH (11:22)
--- NOTE | 2024-05-07 11:29 | Discharge Summary ---
Date of Service May 07, 2024 Admission HPI Per Admitting Provider This is a 54-year-old female who presents with chronic persistent neck and arm pain and failing course of nonoperative care is here for surgical invention. Principal Diagnosis Cervical discrimination with radiculopathy Discharge Data Allergies Allergy/AdvReac Type Severity Reaction Status Date / Time adhesive tape Allergy Intermediate Blisters Verified 05/06/24 07:12 Consultations 05/06/24 09:08 Consult Hospitalist Routine Procedures Performed Operation Date: 05/06/24 07:45 Actual Procedures p C5-C6 Anterior Discectomy and Fusion(Not Applicable) - Cali Blackburn DO Ordered Studies 05/06/24 07:45 FL cervical 2-3V Routine Hospital Course (1) Herniation of cervical intervertebral disc with radiculopathy: Patient underwent anterior cervical discectomy fusion trial as well as taken orthopedic for postoperative. Postoperatively she is swallowing well. No hoarseness. Arm symptoms markedly improved. Excellent strength testing. BEVERLY drain decreasing appropriately. Subsequent discharge home. Discharge orders instructions from the chart for further review. Total Time Total Time Spent Total Time Spent (In Minutes): 20 minutes Discharge Plan Discharge Items Patient Disposition: Home - Self-Care Reason For Visit: Herniated Nucleus Pulposus Cervical, Foraminal Isauro Discharge Diagnosis: cervical disk herniation Activity: As commented below Non-emergency contact: Primary Care Provider Call non-emergency contact if: you have any medication questions Follow-up/Referrals: Peri Tenorio MD [Primary Care Provider] - Diet: Regular Addtl Attending Provider Instructions: ACTIVITY RECOMMENDATIONS: SELF CARE INSTRUCTIONS AFTER CERVICAL FUSIONS 1. No smoking. Smoking drastically decreases the chance of a solid fusion. 2. No bending, lifting more than 5 pounds, or twisting (roll like a log when turning in bed). 3. You may shower 3 days after surgery. Thoroughly dry wound. Do not soak in the tub. 4. Cervical collar: Must be worn at all times including sleeping. You may remove the brace only to bath, eat and if you are sitting in a recliner. 5. Please walk as much as you can for exercise. Gradually increase the distance that you walk as your endurance increases. 6. You may return to previous diet. SPECIAL CARE INSTRUCTIONS: VERY IMPORTANT TO READ AND REVIEW A. Do not take any anti-inflammatory medications (i.e. Indocin, Advil, Aspirin, Naprosyn, Aleve, Motrin, etc.) as these may inhibit the chance of a solid fusion. Tylenol is okay to take. B. Your surgical incision has been closed with a cosmetic suture under the skin that will dissolve in about 6 weeks. In 14 days, you can use a pair of clean scissors and cut the suture that is left outside of the skin at the ends of your incision. C. Complications are uncommon, but please contact us if you have any signs or symptoms of: 1. wound infection (fever higher than 102.5 degrees F, redness, separation of wound, drainage, or increasing pain from the incision) 2. blood clots in legs (pain, swelling, redness and warmth in legs) 3. urinary tract infection (fever higher than 102.5 degrees, burning upon urination or increased frequency of urination) 4. nerve problems (inability to walk on your toes or heels, numbness, loss of bowel or bladder control) 5. any other symptoms that concern you. D. Please call the office at if you have any concerns or questions about your operation or recovery. MANAGING PAIN AFTER SPINAL SURGERY 1. Narcotic medication is intended for short-term use and will be provided for surgical pain. Surgical pain usually lasts for a period of 4-6 weeks. Narcotic medication includes Percocet, Vicodin, Darvocet, Tylenol #3 or Lortab. 2. Longer-term pain is more appropriately treated with non-narcotic medication such as Tylenol ES. 3. Muscle spasm is not appropriately treated with narcotics. Muscle relaxers such as Soma, Flexeril or Skelaxin can be used along with Tylenol ES. 4. Remember that we all live with some "aches and pains". This is not unusual or uncommon after an injury or as we get older. 5. We will provide appropriate medication within the normal guidelines of their prescribed use. We will also be very cautious and aware of potential abuse and extended duration of patients' medication needs. 6. Please allow 2-3 days to process refills. Prescriptions will not be mailed but must be picked up at the office. FOLLOW UP VISIT: Keep your scheduled follow-up appointment. Any questions, please call the office at . Pending Studies at Discharge: No Stand-Alone Forms: [facility], Smoking Cessation Medications and DC Order Prescriptions: New oxycodone-acetaminophen [Percocet] 10-325 mg tablet 1 tab PO Q6 PRN (Reason: pain) Qty: 24 0RF Continued prasterone (dhea) [DHEA] 25 mg Tablet 25 mg PO QAM nitrofurantoin 100 mg Capsule 100 mg PO QPM Rx Instructions: must administer with a meal/food pantoprazole 20 mg Tablet,Delayed Release (Dr/Ec) 20 mg PO DAILY levothyroxine 100 mcg Tablet 100 mcg PO QAM Rx Instructions: 1 tab Fri - Friday then Friday take 1/2 tab oxycodone-acetaminophen 5-325 mg Tablet 1 tab PO TID PRN (Reason: Pain) propranolol 10 mg Tablet 10 mg PO TID furosemide 20 mg Tablet 20 mg PO DAILY PRN (Reason: Edema) hydrocortisone 10 mg Tablet 10 mg PO BID Rx Instructions: 1.5 tab QAM then 1 tab QPM estradiol 0.01 % (0.1 mg/gram) Cream 1 appful VAGINAL DAILY Rx Instructions: three times a week diltiazem HCl 90 mg Tablet 90 mg PO QAM fentanyl 12 mcg/hr Patch 72 Hour 1 patch TRANSDERMAL Q72H pregabalin [Lyrica] 100 mg Capsule 100 mg PO TID cholecalciferol (vitamin D3) [Vitamin D3] 125 mcg (5,000 unit) Tablet 125 mcg PO QAM Patient Comments: "For two weeks prior to 05/06/24 surgery will take BID" vitamin [id number]-[id number] acid 500-400 mcg Tablet 1 tab PO QAM Rx Instructions: administer with a meal potassium chloride 20 mEq Tablet Extended Release 20 meq PO DAILY PRN (Reason: Edema) prochlorperazine maleate 10 mg tablet 10 mg PO Q6H PRN (Reason: Nausea) Discharge Orders: Discharge Order (Routine); Ordered 05/07/24 Ordered By: Cali Blackburn Admission Data Admit Date/Time: 05/06/24 09:07 Attending Provider: Cali Blackburn Admit Provider: Cali Blackburn Primary Care Provider: Peir Tenorio Other Providers: Jacklyn Craft
[2024-05-08] MEDS ORDERED: fentaNYL 12 MCG/HR TDSY TD SCH (09:00)
[2024-05-09] MEDS ORDERED: LEVOTHYROXINE SODIUM 50 MCG TABLET PO SCH (06:30)
== END 2024-05-07 12:42 | disposition home or self-care (01) ==
LOC: ASU 05:40 → 3E 05:40
DX: R13.10 Dysphagia, unspecified; M50.122 Cervical disc disorder at C5-C6 level with radiculopathy; G43.909 Migraine, unspecified, not intractable, without status migrainosus; Z91.048 Other nonmedicinal substance allergy status; Z85.850 Personal history of malignant neoplasm of thyroid; Z79.899 Other long term (current) drug therapy; K21.9 Gastro-esophageal reflux disease without esophagitis; Z87.891 Personal history of nicotine dependence; K22.0 Achalasia of cardia; Z79.890 Hormone replacement therapy; D51.0 Vitamin B12 deficiency anemia due to intrinsic factor deficiency